=== PATIENT | male | born 1985 | race Caucasian/White ===

== ENCOUNTER 2017-10-25 08:11 | Emergency (ER) | payer MEDICARE ==
[~2017-10-25] VITALS: Ht 170.2 cm; Wt 198.0 kg
[2017-10-25 08:20] VITALS: BP 131/69
[2017-10-25] MEDS ORDERED: PENI500T2 PO (09:14)
[2017-10-25] MEDS ORDERED: IBUP-1986 PO (09:14)
[2017-10-25] MEDS ORDERED: ANBESOL TP (09:14)
== END 2017-10-25 09:28 | disposition home or self-care (01) ==
LOC: ER 08:12
DX: K08.89 Other specified disorders of teeth and supporting structures (principal); R51 Headache; J45.909 Unspecified asthma, uncomplicated; Z88.8 Allergy status to other drugs, medicaments and biological substances; Z79.2 Long term (current) use of antibiotics; Z79.899 Other long term (current) drug therapy; Z77.22 Contact with and (suspected) exposure to environmental tobacco smoke (acute) (chronic)
CPT/HCPCS: 99283

== ENCOUNTER 2019-04-03 11:19 | Emergency (ER) | payer MEDICARE ==
[~2019-04-03] VITALS: Ht 170.2 cm; Wt 220.0 kg
[~2019-04-03 11:19] MED LIST: IBUP-1986 PO
[2019-04-03 11:37] VITALS: BP 151/81
--- NOTE | 2019-04-03 12:07 | NUR ---
PT SITTING IN A DARK ROOM, USING CELL PHONE.
[2019-04-03] MEDS ORDERED: metoclopramide 5 mg/ml inj IV ONE (12:25)
[2019-04-03] MEDS ORDERED: diphenhydrAMINE 50 mg/ml inj IV ONE (12:25)
[2019-04-03] MEDS ORDERED: ketorolac trometh. 30mg/ml inj. IV ONE (12:25)
== END 2019-04-03 13:55 | disposition home or self-care (01) ==
LOC: ER 11:20
DX: G43.909 Migraine, unspecified, not intractable, without status migrainosus (principal); J45.909 Unspecified asthma, uncomplicated; E11.9 Type 2 diabetes mellitus without complications; Z88.6 Allergy status to analgesic agent
CPT/HCPCS: 96374; 96375; 99283; J1200; J1885; J2765